=== PATIENT | female | born 1950 | race Caucasian/White ===

== ENCOUNTER 2019-08-27 14:55 | Inpatient (IN) | payer MEDICARE ==
[~2019-08-27 14:55] MED LIST: Iopamidol 370 76% 100 ML VIAL ONE
[2019-08-27] MEDS ORDERED: Lorazepam 2 MG/ML VIAL ONE (15:11)
[2019-08-27 15:17] LABS: Hemoglobin 12.6 g/dL (12.0-16.0); Mean Corpuscular Hemoglobin 30.2 pg (27.0-31.0); Mean Corpuscular Volume 91.3 fL (78.0-98.0); Mean Platelet Volume 9.2 fL (7.4-10.4); Platelet Count 238 thou/uL (130-400); RBC Distribution Width 11.6 % (11.5-14.5); Red Blood Cell (RBC) Count 4.16 mill/uL (4.20-5.40); White Blood Cell (WBC) Count 19.9 thou/uL (4.8-10.8)
--- NOTE | 2019-08-27 15:26 | CT ---
CT HEAD WITHOUT IV CONTRAST COMPARISON: None HISTORY: Seizure TECHNIQUE: Axial CT imaging at 5 mm intervals from vertex through skull base without contrast FINDINGS: There is mild cerebral volume loss. A punctate low-density focus is seen in the region of the posteri or limb left internal capsule which may represent a tiny lacunar infarction of indeterminate age. There is no evidence of an acute infarction, hemorrhage, mass effect, or midline shift. The ventricul ar system is normal in size, shape, and position. Visualized paranasal sinuses are clear. Osseous structures appear intact. IMPRESSION: 1. No acute intracranial abnormality demonstrated. 2. Above findings discussed with Dr. Ng in the emergency department on 08/27/2019 at 1523 hours.
[2019-08-27 15:37] LABS: ALT (SGPT) 11 U/L (8-55); AST (SGOT) 15 U/L (5-34); Albumin 4.1 g/dL (3.4-4.8); Alkaline Phosphatase 124 U/L (40-110); Anion Gap 13 mmol/L (10-20); BUN (Urea Nitrogen) 10 mg/dL (9.8-20.1); Bilirubin, Total 0.2 mg/dL (0.2-1.2); Calc. Creatinine Clearance 0 mL/min (70-130); Calcium 9.5 mg/dL (7.8-10.44); Carbon Dioxide 26 mmol/L (23-31); Chloride 101 mmol/L (98-107); Estimated GFR-MDRD 75; Globulin 2.9 g/dL (2.4-3.5); Glucose 106 mg/dL (80-115); Magnesium 1.9 mg/dL (1.6-2.6); Potassium 3.7 mmol/L (3.5-5.1); Sodium 136 mmol/L (136-145)
[2019-08-27 15:41] LABS: Acetaminophen Less than 6.0 mcg/mL (10.0-30.0); Alcohol Less than 10 mg/dL (Less than 10); Band 8 % (5-11); CK (CPK) 239 U/L (29-168); Lipase 22 U/L (8-78); Lymphocytes 11 % (21-51); MDiff Complete? YES; Monocytes 4 % (0-10); Neutrophil 77 % (42-75); Platelet Morphology Comment Appears Adequate; Polychromasia SLIGHT = 2-3 cells (100X) (0-2/hpf); Salicylate Less than 8.0 mg/dL (15.0-30.0)
--- NOTE | 2019-08-27 15:52 | CT ---
CT arteriogram neck with IV contrast and 3-D imaging CT arteriogram head with IV contrast and 3-D imaging CT brain with IV contrast HISTORY: Seizure. Altered mental status. FINDINGS: There is normal branching of the great vessels at the aortic arch with good contrast opacif ication and good flow into each carotid and vertebral system. No significant plaque or calcification. Internal carotid arteries are widely patent. Very small amount calcification at each c arotid siphon intracranially. [place] is intact with predominant origin of the left posterior cerebral artery. Good flow into each cerebral and cerebellar system. No abnormal enhancing brain lesions. At the left side of the floor of the mouth, there is masslike prominence immediately medial to the le ft mandibular body with effacement of the tongue and adjacent vessels. This hypodense area concerning for a mass measures up to 3.7 cm x 2.9 cm x 2.2 cm greatest diameters and does not signifi cantly displace the left submandibular gland. There is effacement of the left posterior pharyngeal airway. IMPRESSION: No acute vascular or neurologic abnormalities are demonstrated. Probable low-density mass within the left side of the mouth floor. Please correlate regarding palpabl e left submandibular mass and internal visualization of the left floor of mouth. Findings were called to Dr. Ng in the emergency department at 1543 hours. Code CR.
--- NOTE | 2019-08-27 15:52 | RAD ---
EXAM: CHEST ONE VIEW HISTORY: Seizure. Patient stopped breathing. Chest compression was performed. COMPARISON: None FINDINGS: Cardiac silhouette is magnified by projection but is at the upper limits of normal in size to borderl ine enlarged. The pulmonary vasculature is within normal limits. The lungs are clear. Mild degenerative changes are seen in the spine. IMPRESSION: No acute cardiopulmonary process.
[2019-08-27 17:46] LABS: Bilirubin Negative (Negative); Blood, Urine Negative (Negative); Clarity Clear (Clear); Glucose, Urine (Dipstick) Normal (Negative); Leukocyte Negative Leu/uL (Negative); Nitrite Negative (Negative); Protein, Urine (Dipstick) 10 mg/dL (Neg-Trace); Urobilinogen Normal mg/dL (Less than 2)
[2019-08-27] MEDS ORDERED: Aspirin Chewable 81 MG TAB ONE (18:17)
[2019-08-27 21:42] VITALS: BMI 38.2
[2019-08-27] MEDS ORDERED: Lorazepam 2 MG/ML VIAL SLOW IVP PRN (22:36)
[2019-08-28] MEDS ORDERED: Ondansetron ODT 4 MG TAB PO PRN (01:13)
[2019-08-28] MEDS: Acetaminophen 325 MG TAB PO PRN ×2 (01:24→11:06)
[2019-08-28] MEDS: Ondansetron PF 4 MG/2 ML Vial IVP PRN ×2 (01:24→13:19)
[2019-08-28] MEDS ORDERED: Sodium Chloride 0.9% 1,000 ML IV SCH (01:30)
--- NOTE | 2019-08-28 04:25 | HP ---
The patient was seen and examined on August 27, 2019. PRIMARY CARE PHYSICIAN: The patient is from out of town. She recently relocated from [place]. She does not have a local primary care at this time. HISTORY OF PRESENT ILLNESS: The patient is a 68-year-old female with hypertension and obstructive sleep apnea, who was brought in by EMS to the emergency room after an episode of seizure. Please note that the patient is a poor historian. There are no family at the bedside. The patient had a seizure while she was at home. She stated that she was in the kitchen at that time. It is unclear what type of seizure she had. EMS reported that the found her turn blue and started giving her chest compression. Later on, the patient regained consciousness. When EMS arrived, the patient had stable vital signs. The also reported that the patient had some speech changes along with blurriness of vision and weakness. She was last seen normal approximately an hour ago. Per ER record, the reported that the patient had seizure in the past due to benzodiazepine withdrawal. The patient states that she takes clonazepam; however, she gave me six different answers when I asked her at various occasions when was the last dose of clonazepam. PAST MEDICAL HISTORY: 1. Hypertension. 2. Obstructive sleep apnea. 3. Anxiety and depression. PAST SURGICAL HISTORY: Hysterectomy. ALLERGIES: THE PATIENT IS ALLERGIC TO PENICILLIN. CURRENT HOME MEDICATIONS: The patient is unable to recall any of her home medications. We will try to confirm with the family when they arrive. According to external medication history, the patient had clonazepam 1 mg filled on August 22, 2019. She was instructed to take half a tablet daily as needed for anxiety. She also filled bupropion 150 mg, Prozac 20 mg, and pravastatin 20 mg earlier this month at [facility]. SOCIAL HISTORY: The patient currently lives at home with her . She recently relocated from [place], [place]. She denies history of smoking, alcohol, or drug use. She is full code. Her is the decision maker. FAMILY HISTORY: Negative for heart disease. REVIEW OF SYSTEMS: The patient is a poor historian. Review of systems was limited. PHYSICAL EXAMINATION: VITAL SIGNS: On ER arrival, temperature 98.4, pulse rate of 82, blood pressure 175/89 with respirations of 14, O2 saturation 100% on room air. GENERAL: A 68-year-old female in no apparent distress. HEENT: Head, atraumatic and normocephalic. Sclerae anicteric. Moist mucous membranes. No oral lesion. NECK: Supple. No JVD. No carotid bruit. LUNGS: Clear to auscultation bilaterally. No wheezing, rales, or rhonchi. HEART: S1 and S2 present. Regular rate and rhythm. No rubs or gallops. ABDOMEN: Soft, nontender. Bowel sounds present. No rebound or guarding. EXTREMITIES: No edema or calf tenderness. NEUROLOGIC: Pupils were 4 to 5 mm bilaterally with sluggish response to light. Extraocular muscles were intact. Cranial nerves 2 through 12 are normal on examination. Power was 5/5 in all extremities. SKIN: Warm and dry. LYMPH NODES: No palpable lymph nodes in the neck. PERIPHERAL VASCULAR: Radial pulses palpable bilaterally. MUSCULOSKELETAL: No joint swelling or tenderness. LABORATORY FINDINGS: CBC showed WBC 19.9 with hemoglobin 12.6, hematocrit 38, platelet count 238. Chemistry showed sodium 136, potassium 3.7, chloride 101, bicarb 26, BUN 10, creatinine 0.77. LFTs in normal range except for alkaline phosphatase 124. Troponin was negative. TSH was normal. Lactic acid 1.0. Urinalysis was negative for WBC, bacteria. It had a specific gravity of 1.058. IMAGING STUDIES: Chest x-ray by my review was negative for infiltrate. CT scan of the brain by my review was negative for acute CVA. There was some questionable lacunar infarction of indeterminate age in the posterior limb of the left internal capsule. Telemetry monitoring by my review showed sinus rhythm. Medication administered in the emergency room; 1. Aspirin 324 mg daily. 2. Ativan 0.5 mg x1. IMPRESSION: 1. Seizure. 2. Encephalopathy secondary to #1, rule out cerebrovascular accident. 3. Abnormal CT scan of the brain. 4. Anxiety. 5. Depression, mild, stable. 6. Obstructive sleep apnea, on CPAP. 7. Obesity with a BMI of 38.2. 8. Dehydration. 9. Chronic kidney disease, stage 2. 10. Leukocytosis with left shift of unclear etiology. No obvious infectious etiology identified. 11. Hypertension. PLAN: 1. The patient will be monitored in the stroke unit. We will continue aspirin. MRI of the brain will be obtained. We will consult Neurology. We will recheck labs in a.m. Gentle IV hydration. PT/OT evaluation. Check fasting lipid profile in a.m. 2. Frequent neuro checks. Fall precaution. We will obtain more information from the in a.m. Verify home medications. 3. Plan of care was discussed with the patient in detail. She stated understanding. Job ID: [id number]
[2019-08-28 04:52] LABS: #Eosinphils 0.1 thou/uL (0.0-0.7); #Lymphocytes 2.4 thou/uL (1.20-3.40); #Monocytes 0.9 thou/uL (0.11-0.59); #Neutrophils 11.1 thou/uL (1.40-6.50); %Basophils 0.2 % (0.0-1.0); %Eosinophils 0.4 % (0.0-10.0); %Lymphocytes 16.9 % (21.0-51.0); %Neutrophils 76.4 % (42.0-75.0); Hemoglobin 11.4 g/dL (12.0-16.0); Mean Corpuscular HGB CONC 32.6 g/dL (32.0-36.0); Mean Corpuscular Hemoglobin 29.8 pg (27.0-31.0); Mean Corpuscular Volume 91.5 fL (78.0-98.0); Mean Platelet Volume 9.2 fL (7.4-10.4); Platelet Count 205 thou/uL (130-400); RBC Distribution Width 11.8 % (11.5-14.5); Red Blood Cell (RBC) Count 3.84 mill/uL (4.20-5.40); White Blood Cell (WBC) Count 14.5 thou/uL (4.8-10.8)
[2019-08-28 05:08] LABS: Anion Gap 13 mmol/L (10-20); BUN (Urea Nitrogen) 10 mg/dL (9.8-20.1); Calc. Creatinine Clearance 104 mL/min (70-130); Calcium 9.2 mg/dL (7.8-10.44); Carbon Dioxide 26 mmol/L (23-31); Cardiac Risk 4.9 (Less than 4.5); Chloride 100 mmol/L (98-107); Cholesterol 173 mg/dl (< 200 Desired); Estimated GFR-MDRD 70; Glucose 114 mg/dL (80-115); HDL Cholesterol 35 mg/dL (>60 Neg Risk); LDL Cholesterol, Calculated 116 mg/dL; Magnesium 1.9 mg/dL (1.6-2.6); Potassium 3.7 mmol/L (3.5-5.1); Sodium 135 mmol/L (136-145); Triglycerides 112 mg/dL (Less than 150)
[2019-08-28] MEDS ORDERED: Cyanocobalamin 1000 MCG/ML VIAL IM SCH (09:00)
[2019-08-28] MEDS: Aspirin 325 mg Enteric Coated Tablet PO SCH (10:55)
[2019-08-28] MEDS: Enoxaparin Sodium 40 MG/0.4 ML SYRINGE SC SCH (10:55)
[2019-08-28] MEDS: Cyanocobalamin (Vitamin B-12) 1,000 MCG TAB PO SCH (10:55)
[2019-08-28] MEDS: hydrALAZINE 20 MG/ML VIAL SLOW IVP PRN ×2 (11:42→23:46)
--- NOTE | 2019-08-28 12:07 | CON ---
DATE OF CONSULTATION: 08/28/2019 CONSULTING PHYSICIAN: Hospitalist Service. IMPRESSION: Reported generalized seizure with cyanosis. Workup thus far is unremarkable. PLAN: Start Keppra 500 mg twice a day. The patient can be seen in followup as an outpatient. HISTORY OF PRESENT ILLNESS: Ms. Rubio is a 68-year-old white female, who is quite a poor historian. She reportedly has a history of hypertension and sleep apnea. Reportedly, she had a seizure in the past related to possible benzodiazepine withdrawal. She apparently collapsed in her kitchen and became cyanotic. Her started CPR. It is not clear whether there was any convulsive activity. The patient was brought into the ER for evaluation. Her CT of the brain and CT angiogram were both unremarkable. Laboratory studies initially showed an elevated white count of 19.9, which settled down to a 14.5 level. Chemistry panel did not show any acidosis. Her urine was clear. Her tox screen was unremarkable. Vital signs were otherwise stable. She is now at this point having some retching and nausea. She really could not give me any more information. PAST MEDICAL HISTORY: As listed above. ALLERGIES: PENICILLIN. MEDICATIONS: Reviewed. She is currently on aspirin and Lipitor. SOCIAL HISTORY: No tobacco use. FAMILY HISTORY: Noncontributory. REVIEW OF SYSTEMS: Ten-system review of systems unremarkable. PHYSICAL EXAMINATION: VITAL SIGNS: Blood pressure 147/91, pulse 73, respirations 20, and temperature 98.7. HEENT: Pupils equal and reactive. Conjunctivae clear. Oropharynx clear. NECK: Supple. EXTREMITIES: No cyanosis or edema. NEUROLOGIC: She is awake and relatively cooperative. Her speech is fluent and clear. She acts a bit confused in that she did not really follow commands appropriately at times. Her face appears symmetric. She had symmetric strength in her arms. There were no abnormal movements other than retching movements of her abdomen. Sensation was intact. Gait was not tested. LABORATORY DATA: Laboratory and imaging were reviewed. SUMMARY: The history would suggest she may have had a generalized tonic-clonic seizure with cyanosis. Her lab work did not really reflect any changes, but she was quite a ways out from the hospital. I would go ahead and start her on Keppra given this is a second event. Job ID: [id number]
--- NOTE | 2019-08-28 15:16 | MRI ---
MRI brain noncontrast HISTORY: Altered mental status. Seizure. FINDINGS: There is no evidence of acute intracranial hemorrhage or infarct. Within the periventricular white matter, there are a few scattered oval foci of increased T2 and FLAI R signal without restriction diffusion. Some are oriented perpendicular to the adjacent lateral ventricles. Additionally, there are mild chronic ischemic small vessel disease changes Mild bifrontal atrophy. No mass effect or shift of midline structures. IMPRESSION: Small foci of bilateral white matter gliosis as detailed above. In addition to the appear ance of chronic ischemic small vessel disease, some demonstrate characteristics associated with plaques of a pathologic demyelinating process. Clinical and laboratory correlation regarding other signs and symptoms of multiple sclerosis is requi red.
--- NOTE | 2019-08-28 19:58 | PDOC.EVN ---
Event Note - Event Note Event Note: Patient continues to have some issues with speech and word finding . states that the patient is getting her years and stories mixed up. She has a mild headache. Patient reports having four teeth extracted last month by [facility] and had a bridge placed recently by a general dentist in [place] two week [facility]. She took antibiotics and finished them ten days ago. She has some tooth pain. Patient reports some weakness in her legs. Per , patient ran out of clonazepam two weeks ago and believes that precipitated the seizure. The same thing happened last year. They have tried to change psychiatrists and wean her off clonazepam. She is on wellbutrin and prozac for depression/anxiety. Explained that wellbutrin cause seizures. Patient is upset that she was told that she needed rehab before getting an official diagnosis On exam: GEn: alert, awake, oriented x 3. Has some issues finishing sentences and will stop mid sentence HEENT: tooth with filling present on third molar left side. Also noted to have hole on the gum above tooth 11 on the upper right. Mildly tender to palpation Neck: some lymphadenopathy noted in mandibular area on left side. No thyroid swellin g CVS: RRR, no murmurs, rubs, gallops Lungs: CTAB Abdomen: + BS, soft, nontender nondistended Extremities: no edema. Has 5/5 strength in upper and lower extremities. Intact sensation in all four extremities Labs: Brain MRI: some plaques with possible pathologic demyelinating process, correlate with MS CTA: low density mass within left side of mouth floor. This is 3.7 cm x 2.9 cm x 2.2 cm Plan: #Seizure possibly secondary to clonazepam withdrawal vs wellbutrin #Possible Multiple sclerosis? - will start keppra per neurology recommendations - contacted Dr Frey about MS findings on MRI brain, will re-evaluate in the am S/p tooth extraction with bridging - obtain records from [facility] and possibly records from [place] - check CT facial bones Lymphadenopathy - CT neck shows mass in left neck - check CT neck - ENT consult pending Leukocytosis - WBC down to 14.5, continue to trend - downtrended without any antibiotics - UA negative, chest X ray negative
[2019-08-28] MEDS: levETIRAcetam 500 MG TAB PO SCH (20:19)
[2019-08-28] MEDS ORDERED: traZODone HCl 50 MG TAB PO SCH (21:00)
[2019-08-28] MEDS ORDERED: Primidone 50 MG TAB PO SCH (21:00)
[2019-08-28] MEDS ORDERED: Atorvastatin Calcium 40 MG TAB PO SCH (21:00)
--- NOTE | 2019-08-28 21:43 | CT ---
CT NECK SOFT TISSUES WITH IV CONTRAST: 08/28/19 HISTORY: Probable mass noted on CTA of previous day. FINDINGS: No definite mass is seen in the region of the tongue or floor of the mouth. The submandibular and par otid gland s appear normal. No cervical lymphadenopathy seen. No abnormally loculated fluid collectio ns noted to suggest abscess formation. There is a tiny low density lesion in the left lobe of the thy roid gland. The aerodigestive tract appears patent. Epiglottis is normal. The orbits and visualized p ortions of the brain are unremarkable. There are degenerative changes in the spine. IMPRESSION: No definite evidence of mass in the region of the floor of the mouth. Evaluation with direct visualiz ation is recommended. POS: OFF
[2019-08-28] MEDS: Gabapentin 300 MG CAP PO SCH (22:37)
[2019-08-28] MEDS: Carvedilol 6.25 MG TAB PO SCH (22:38)
[2019-08-28] MEDS: Bupropion 150 MG XL TAB PO SCH (22:39)
[2019-08-28] MEDS: FLUoxetine HCl 20 MG CAP PO SCH (22:39)
[2019-08-29 05:16] LABS: Hemoglobin 11.8 g/dL (12.0-16.0); Mean Corpuscular HGB CONC 32.8 g/dL (32.0-36.0); Mean Corpuscular Hemoglobin 30.2 pg (27.0-31.0); Mean Corpuscular Volume 92.1 fL (78.0-98.0); Mean Platelet Volume 9.2 fL (7.4-10.4); Platelet Count 223 thou/uL (130-400); RBC Distribution Width 11.9 % (11.5-14.5); White Blood Cell (WBC) Count 15.4 thou/uL (4.8-10.8)
[2019-08-29 05:38] LABS: Anion Gap 8 mmol/L (10-20); BUN (Urea Nitrogen) 10 mg/dL (9.8-20.1); Calc. Creatinine Clearance 108 mL/min (70-130); Calcium 9.3 mg/dL (7.8-10.44); Carbon Dioxide 32 mmol/L (23-31); Chloride 99 mmol/L (98-107); Estimated GFR-MDRD 73; Glucose 94 mg/dL (80-115); Potassium 3.3 mmol/L (3.5-5.1); Sodium 136 mmol/L (136-145)
[2019-08-29] MEDS ORDERED: Potassium Chloride 20 MEQ TAB PO SCH (08:00)
[2019-08-29 08:04] VITALS: TEMP 98
[2019-08-29] MEDS ORDERED: Pravastatin Sodium 20 MG TAB PO SCH (09:00)
[2019-08-29] MEDS ORDERED: Lisinopril 20 MG TAB PO SCH (09:00)
[2019-08-29] MEDS ORDERED: clonazePAM 1 MG TAB PO SCH (09:00)
[2019-08-29] MEDS ORDERED: Amlodipine 5 MG TAB PO SCH (09:00)
[2019-08-29] MEDS ORDERED: Hydrochlorothiazide 25 MG TAB PO SCH (09:00)
[2019-08-29] MEDS: Aspirin 325 mg Enteric Coated Tablet PO SCH (09:09)
[2019-08-29] MEDS: Carvedilol 6.25 MG TAB PO SCH (09:09)
[2019-08-29] MEDS: Cyanocobalamin (Vitamin B-12) 1,000 MCG TAB PO SCH (09:09)
[2019-08-29] MEDS: Bupropion 150 MG XL TAB PO SCH (09:09)
[2019-08-29] MEDS: Enoxaparin Sodium 40 MG/0.4 ML SYRINGE SC SCH (09:09)
[2019-08-29] MEDS: FLUoxetine HCl 20 MG CAP PO SCH (09:10)
[2019-08-29] MEDS: Gabapentin 300 MG CAP PO SCH (09:10)
[2019-08-29] MEDS: levETIRAcetam 500 MG TAB PO SCH (09:10)
[2019-08-29] MEDS: Acetaminophen 325 MG TAB PO PRN (10:13)
--- NOTE | 2019-08-29 10:23 | PRG ---
DATE OF SERVICE: 08/29/2019 Based on nursing notes I do not see any evidence there has been any further seizure activity. The patient had an MRI of the brain, which only showed some periventricular white matter capping, but no other significant lesions. Her echocardiogram showed a normal ejection fraction of 60% to 65%. She has been sleeping soundly. She has otherwise been stable. She appears to be stable for discharge on her current treatment plan and I would be happy to follow up with her as an outpatient. Job ID: [id number]
[2019-08-29 13:31] VITALS: BP 142/68
--- NOTE | 2019-08-30 09:42 | DIS ---
DATE OF ADMISSION: 08/27/2019 DATE OF DISCHARGE: 08/29/2019 DISCHARGE DIAGNOSES: 1. Seizure possibly secondary to clonazepam withdrawal versus Wellbutrin 2. Hypertension 3. Tooth pain 4. Left thyroid lobe lesion 5. Anemia 6. Hypokalemia 7. Lymphadenopathy 8. Leukocytosis. CONSULTATIONS: neurology with Dr. Shahbaz Holm PROCEDURES: EEG BRIEF HISTORY OF PRESENT ILLNESS: This is a 68-year-old female, who had presented to the emergency room after an episode of seizure. The patient states that she was in the kitchen and her found her turning blue and started giving her chest compressions. She briefly regained consciousness after that. The patient states that this has happened before a year ago whenever she ran out of her clonazepam 1 or 2 weeks prior. The patient states that she takes clonazepam 1 mg daily for anxiety and has been trying to wean off. Her last dose was two weeks ago. HOSPITAL COURSE: #Seizure possibly secondary to clonazepam withdrawal versus Wellbutrin: Neurology was consulted and the patient was started on Keppra 500 mg b.i.d. The patient had a CT scan of her head, which showed a punctate low density focus in the region in the posterior lung left internal capsule. There was no acute stroke. MRI of her brain showed no evidence of a stroke and small-vessel disease. They did mention that there may be some bilateral white matter gliosis consistent with MS, however, Neurology did not feel that this appeared like MS. The patient was discharged on aspirin 81 mg daily and she was advised to continue taking her statin. The patient states that she was supposed to be taking aspirin as an outpatient, however, does not take it on a regular basis. #Hypertension: The patient's BP was 140s to 190s in the hospital. She was already taking hydrochlorothiazide, lisinopril, and Coreg at home. She was started on amlodipine 5 mg daily with improvement of her blood pressure to 121/53. The patient will be discharged on this and can follow up with her PCP in a week for additional blood pressure titration. #Tooth pain: The patient was noted to have some tooth pain on the left side. She reported that she had a few teeth pulled a few weeks ago and had four bridges placed on her teeth. She had a CT scan of her neck, which showed no abscess. Upon speaking to the radiologists, they mentioned she may have some periodontal disease on the right maxillary area and there was a crown noted on the left third molar. The patient was prescribed Augmentin for 7 days due to an elevated white count of 15.4. She was advised to follow up with her dentist and her microfilm processor as an outpatient. Of note, a dental consult was made, however, they stated that they would not be able to come to the hospital until Monday. Therefore, she was discharged with outpatient followup. #Lesion in the left lobe of the thyroid gland: This was noted on CT scan of the neck. The patient can get a thyroid ultrasound done as an outpatient. #Anemia: The patient had hemoglobin and hematocrit of 11.8/35.9. She should have vitamin B12 and folate level checked, which was normal. She had a TSH checked, which was normal. This can be followed up as an outpatient. #Hypokalemia: The patient had a potassium of 3.3 on the day of discharge. She was given supplementation and needs a repeat BMP in a week as an outpatient. #Lymphadenopathy: The patient underwent a CT scan of her neck, which showed no lymphadenopathy. This was resolved on the day of discharge. #Leukocytosis: The patient had a white blood cell count of 19.9, which improved to 15.4 on the day of discharge. She had a UA and chest x-ray, which were unremarkable. This may be secondary to tooth pain versus reactive from seizure. This should be repeated and followed up as an outpatient. DISCHARGE PHYSICAL EXAMINATION: VITAL SIGNS: Temperature 98, heart rate 82, respiratory rate 16, O2 saturation 99% on room air, blood pressure 121/53. GENERAL: Regular rate and rhythm with no murmurs, rubs, or gallops. NEUROLOGIC: The patient has 5/5 strength in her upper and lower extremities. Cranial nerves 2 through 12 are intact. Her sensation is intact in all 4 extremities as well as motor strength. ENT: The patient does have tardive dyskinesia of her tongue. She has poor dentition and she has a crown versus a dark discolored tooth on her third molar on the upper left. Also noted to have some gum disease on the upper right teeth. CARDIOVASCULAR SYSTEM: Regular rate and rhythm. No murmurs, rubs, or gallops. LUNGS: Clear to auscultation bilaterally. ABDOMEN: Positive bowel sounds, soft, nontender, nondistended. EXTREMITIES: No edema. PERTINENT LABORATORY DATA: CBC on 08/29: Shows a white count of 15.4, hemoglobin 11.8, hematocrit 35.9. BMP on 08/29: Shows a potassium of 3.3. Lipid panel: Triglycerides are 112, cholesterol 173, LDL 116, HDL 35. Vitamin B12: 260. Folate: 9.50. TSH: 0.7. UA: Shows an elevated specific gravity of 1.058. Urine toxicology: Negative for salicylates, acetaminophen, or plasma. DISCHARGE CONDITION: Stable. ACTIVITY: As tolerated. DIET: Heart healthy diet. DISCHARGE INSTRUCTIONS: The patient was started on amlodipine 5 mg daily for BP , she needs follow up with PCP. Also advised to continue aspirin and statin and start taking keppra 500 mg daily and follow up with Dr. Shahbaz Holm in 1 to 2 weeks. She should follow up with her psychiatrist in a week for further tapering of her clonazepam. She should consider alternative anti-depressant than wellbutrin because this can cause seizures. The patient should also follow up with her primary care doctor for referral to a sleep specialist for management of her CPAP machine per patient request. She also should get a thyroid ultrasound as an outpatient for evaluation of left thyroid lobe lesion. She also needs to follow up with her dentist in a week for evaluation of tooth pain and to get a teeth cleaning. She should start taking Augmentin for 1 week. Job ID: [id number] [facility]
== END 2019-08-29 14:28 | disposition home or self-care (01) | DRG 101 ==
LOC: ERS 14:55 → 2SE 20:45
PROVIDERS: ADMIT Internal Medicine; ATTEND Internal Medicine
DX: G40.909 Epilepsy, unspecified, not intractable, without status epilepticus (principal); F32.0 Major depressive disorder, single episode, mild; G93.49 Other encephalopathy; F19.939 Other psychoactive substance use, unspecified with withdrawal, unspecified; G47.33 Obstructive sleep apnea (adult) (pediatric); F41.9 Anxiety disorder, unspecified; Z90.710 Acquired absence of both cervix and uterus; Z88.0 Allergy status to penicillin; Z79.82 Long term (current) use of aspirin; Z79.899 Other long term (current) drug therapy; N18.2 Chronic kidney disease, stage 2 (mild); I12.9 Hypertensive chronic kidney disease with stage 1 through stage 4 chronic kidney disease, or unspecified chronic kidney disease; D72.829 Elevated white blood cell count, unspecified; E66.9 Obesity, unspecified; Z68.32 Body mass index [BMI] 32.0-32.9, adult; R59.1 Generalized enlarged lymph nodes; R40.2142 Coma scale, eyes open, spontaneous, at arrival to emergency department; R40.2252 Coma scale, best verbal response, oriented, at arrival to emergency department; R40.2362 Coma scale, best motor response, obeys commands, at arrival to emergency department
CPT/HCPCS: 36415; 36416; 70450; 70487; 70491; 70496; 70498; 70551; 71045; 80048; 80053; 80061; 80307; 81003; 82140; 82550; 82607; 82746; 83605; 83690; 83735; 84443; 84484; 85025; 85027; 87040; 87086; 93005; 93306; 94760; 95816; 95819; A4353; J0360; J1650; J2060; J2405; Q0162; Q9967